=== PATIENT | male | born 1960 | race Caucasian/White ===

== ENCOUNTER 2017-01-10 21:10 | Inpatient (IN) | payer OTHER ==
[~2017-01-10] VITALS: Ht 193 cm; Wt 102.8 kg
[~2017-01-10 21:10] MED LIST: AMIO200T42 PO; ERGO500017 PO; ESZO3TAB9 PO; LOSA25TA5 PO; METO-93 PO; METO25TA91 PO; MEXI150C PO; SOTA80TA PO; SPIR25TA PO; TRAZ50TA18 PO; WARF10TA6 PO; WARF2.5T73 PO
[2017-01-10 21:48] LABS: BLOOD UREA NITROGEN 23 mg/dL (7-18)
[2017-01-10 21:52] LABS: IS PT STATUS REG ER OR PRE ER? YES
[2017-01-10] MEDS ORDERED: EZET10TA3 PO (22:14)
[2017-01-10] MEDS ORDERED: ASPI-515 PO (22:14)
[2017-01-10] MEDS ORDERED: ONDANSETRON 2MG/ML, 2ML IVPush PRN (22:30)
[2017-01-10 23:24] VITALS: BP 117/84
[2017-01-10] MEDS ORDERED: WARF7.5T6 PO (23:44)
[2017-01-11] MEDS ORDERED: BISACODYL 10 MG SUPP PR PRN (01:00)
[2017-01-11] MEDS ORDERED: POLYETHYLENE GLYCOL 17 GM PACKET PO PRN (01:00)
[2017-01-11] MEDS ORDERED: ONDANSETRON 2MG/ML, 2ML IVPush PRN (01:00)
[2017-01-11] MEDS ORDERED: ACETAMINOPHEN 325 MG TABLET PO PRN (01:00)
[2017-01-11] MEDS ORDERED: morphine SULFATE 10 MG/ML, 1ML IVPush PRN (01:00)
[2017-01-11] MEDS ORDERED: NITROGLYCERIN 0.4 MG BOTTLE (25 TABS) SL PRN (01:00)
[2017-01-11] MEDS: ENOXAPARIN 100 MG/ML SQ SCH ×2 (01:31→12:18)
[2017-01-11] MEDS: ZOLPIDEM 5MG TABLET PO SCH (01:31)
[2017-01-11] MEDS: MEXILETINE 150 MG CAPSULE PO SCH ×3 (01:32→18:44)
[2017-01-11 01:37] VITALS: BP 119/82
[2017-01-11 04:01] LABS: ASPARTATE AMINO TRANSFERASE 29 U/L (15-37); BLOOD UREA NITROGEN 20 mg/dL (7-18)
[2017-01-11 04:09] LABS: IS PT STATUS REG ER OR PRE ER? NO
[2017-01-11 07:10] VITALS: BP 104/64
[2017-01-11] MEDS ORDERED: REGADENOSON 0.4 MG/5 ML SYRINGE ONE (08:09)
[2017-01-11] MEDS: SENNA/DOCUSATE TABLET PO SCH (09:00)
[2017-01-11] MEDS: SODIUM CHLORIDE FLUSH 3ML SYRINGE IVF SCH ×2 (09:00→20:25)
[2017-01-11] MEDS: EZETIMIBE 10 MG TABLET PO SCH (12:16)
[2017-01-11] MEDS: LOSARTAN 25MG TABLET PO SCH (12:17)
[2017-01-11] MEDS: METOPROLOL SUCCINATE 50 MG TAB.ER.24H PO SCH (12:17)
[2017-01-11] MEDS: ASPIRIN 81 MG TABLET EC PO SCH (12:17)
[2017-01-11] MEDS: SPIRONOLACTONE 25 MG TABLET PO SCH (12:18)
[2017-01-11] MEDS: AMIODARONE 200 MG TABLET PO SCH ×2 (12:18→20:25)
[2017-01-11 13:50] LABS: IS PT STATUS REG ER OR PRE ER? NO
[2017-01-11 14:07] VITALS: BP 109/74
[2017-01-11] MEDS: NICOTINE 7 MG/24 HR PATCH.TD24 TD SCH (14:57)
[2017-01-11] MEDS ORDERED: WARFARIN 7.5 MG TABLET PO-COUM SCH (18:00)
[2017-01-11] MEDS ORDERED: WARFARIN 7.5 MG TABLET PO-COUM ONE (20:00)
[2017-01-11 20:01] VITALS: BP 102/65
[2017-01-11] MEDS ORDERED: WARFARIN 10 MG TABLET PO-COUM ONE (20:30)
[2017-01-12] MEDS: ENOXAPARIN 100 MG/ML SQ SCH (00:15)
[2017-01-12] MEDS: MEXILETINE 150 MG CAPSULE PO SCH ×2 (00:15→09:17)
[2017-01-12] MEDS: ZOLPIDEM 5MG TABLET PO SCH (00:15)
[2017-01-12] MEDS: NICOTINE 7 MG/24 HR PATCH.TD24 TD SCH (00:15)
[2017-01-12 00:51] VITALS: BP 103/69
[2017-01-12 05:14] LABS: BLOOD UREA NITROGEN 20 mg/dL (7-18)
[2017-01-12 08:01] VITALS: BP 108/73
[2017-01-12] MEDS: SENNA/DOCUSATE TABLET PO SCH (09:00)
[2017-01-12] MEDS: SODIUM CHLORIDE FLUSH 3ML SYRINGE IVF SCH (09:00)
[2017-01-12] MEDS: METOPROLOL SUCCINATE 50 MG TAB.ER.24H PO SCH (09:16)
[2017-01-12] MEDS: EZETIMIBE 10 MG TABLET PO SCH (09:16)
[2017-01-12] MEDS: SPIRONOLACTONE 25 MG TABLET PO SCH (09:17)
[2017-01-12] MEDS: LOSARTAN 25MG TABLET PO SCH (09:17)
[2017-01-12] MEDS: ASPIRIN 81 MG TABLET EC PO SCH (09:17)
[2017-01-12] MEDS: AMIODARONE 200 MG TABLET PO SCH (09:17)
[2017-01-12] MEDS ORDERED: WARFARIN MODERAT DOSE PROTOCOL XX SCH (12:00)
[2017-01-12] MEDS ORDERED: WARFARIN 10 MG TABLET PO-COUM SCH (18:00)
== END 2017-01-12 13:50 | disposition home or self-care (01) | DRG 309 ==
LOC: ED 22:24 → EDIP 23:16 → 5SO 23:18
PROVIDERS: ADMIT Internal Medicine; ATTEND Internal Medicine
PROC: 4B02XSZ Measurement of Cardiac Pacemaker, External Approach (ICD-10-PCS; principal; 2017-01-11)
DX: I49.3 Ventricular premature depolarization (principal); I50.42 Chronic combined systolic (congestive) and diastolic (congestive) heart failure; D68.69 Other thrombophilia; I25.10 Atherosclerotic heart disease of native coronary artery without angina pectoris; I25.5 Ischemic cardiomyopathy; F17.210 Nicotine dependence, cigarettes, uncomplicated; F43.10 Post-traumatic stress disorder, unspecified; I11.0 Hypertensive heart disease with heart failure; J44.9 Chronic obstructive pulmonary disease, unspecified; K21.9 Gastro-esophageal reflux disease without esophagitis; E78.5 Hyperlipidemia, unspecified; Z88.8 Allergy status to other drugs, medicaments and biological substances; Z82.49 Family history of ischemic heart disease and other diseases of the circulatory system; Z86.73 Personal history of transient ischemic attack (TIA), and cerebral infarction without residual deficits; I25.2 Old myocardial infarction; Z95.1 Presence of aortocoronary bypass graft; Z90.49 Acquired absence of other specified parts of digestive tract; Z79.82 Long term (current) use of aspirin; Z79.899 Other long term (current) drug therapy; Z79.01 Long term (current) use of anticoagulants; Z98.84 Bariatric surgery status; Z95.0 Presence of cardiac pacemaker
CPT/HCPCS: 36415; 78452; 80048; 80053; 82040; 82330; 83735; 84443; 84481; 84484; 85025; 85610; 93005; 93017; 93306; 99285; J1650; J2785; A9502; C9898

== ENCOUNTER 2018-01-10 14:40 | Emergency (ER) | payer MEDICARE, OTHER ==
[~2018-01-10] VITALS: Ht 193 cm; Wt 112.3 kg
[~2018-01-10 14:40] MED LIST changes: +ASPI-515 PO; +ESZO3TAB28 PO; -ESZO3TAB9 PO; +EZET10TA18 PO; +WARF10TA43 PO; -WARF10TA6 PO; +WARF7.5T46 PO
[2018-01-10 16:08] LABS: BASOPHILS # (AUTO) 0.04 x10^3/uL (0-0.1); BASOPHILS % (AUTO) 1 % (0-1); EOSINOPHILS % (AUTO) 1 % (1-7); LYMPHOCYTES # (AUTO) 1.48 x10^3/uL (1-3.4); LYMPHOCYTES % (AUTO) 16 % (22-44); MD NO; MEAN CORPUSCULAR HEMOGLOBIN 28.9 pg (27.5-34.5); MEAN CORPUSCULAR HGB CONC 32.7 g/dL (33.2-36.2); MEAN CORPUSCULAR VOLUME 88.5 fL (81-97); MEAN PLATELET VOLUME 8.1 fL (7.4-10.4); MONOCYTES # (AUTO) 0.79 x10^3/uL (0.2-0.8); MONOCYTES % (AUTO) 8 % (2-9); NEUTROPHILS # (AUTO) 7.09 x10^3/uL (1.8-6.8); NEUTROPHILS % (AUTO) 75 % (42-75); PLATELET COUNT 300 x10^3/uL (130-400); RED BLOOD COUNT 4.72 x10^6/uL (4.38-5.82)
[2018-01-10 16:15] LABS: INTERNATIONAL NORMALIZED RATIO 3.31 (0.93-1.1); PROTHROMBIN TIME 33.3 Seconds (9.6-11.5)
[2018-01-10 16:20] LABS: ALBUMIN 3.7 g/dL (3.4-5.0); ANION GAP 9 mmol/L (5-15); CHLORIDE 104 mmol/L (98-107)
[2018-01-10 16:27] LABS: ALANINE AMINOTRANSFERASE 46 U/L (12-78); ALKALINE PHOSPHATASE 90 U/L (45-117); BILIRUBIN,TOTAL 0.7 mg/dL (0.2-1.0); CALCIUM 8.9 mg/dL (8.5-10.1); CREATININE 1.64 mg/dL (0.7-1.3); TOTAL PROTEIN 7.3 g/dL (6.4-8.2); TROPONIN I < 0.015 ng/mL (0.000-0.045)
[2018-01-10] MEDS ORDERED: AMIODARONE 450 MG in DEXTROSE 5% 241 ML IV PRN (17:00)
[2018-01-10] MEDS ORDERED: FILTER 0.22 MICRON IV PRN (17:00)
[2018-01-10] MEDS ORDERED: SODIUM CHLORIDE 0.9% 1,000 ML IV SCH (17:32)
[2018-01-10] MEDS ORDERED: AMPICILLIN/SULBACTAM 3 GM in SODIUM CHLORIDE 0.9% 100 ML IV SCH (18:00)
[2018-01-10] MEDS ORDERED: MEXILETINE 150 MG CAPSULE PO SCH (18:00)
[2018-01-10] MEDS ORDERED: AMIODARONE 900 MG in DEXTROSE 5% 482 ML IV SCH (18:00)
[2018-01-10] MEDS ORDERED: PHARMACY MAY ADJ FOR RENAL FX MC PRN (18:00)
[2018-01-10] MEDS ORDERED: DOCUSATE 100 MG CAPSULE PO PRN (18:00)
[2018-01-10] MEDS ORDERED: POLYETHYLENE GLYCOL 17 GM PACKET PO PRN (18:00)
[2018-01-10] MEDS ORDERED: morphine SULFATE 10 MG/ML, 1ML IVPush PRN (18:00)
[2018-01-10] MEDS ORDERED: ONDANSETRON ODT 4 MG PO PRN (18:00)
[2018-01-10] MEDS ORDERED: ACETAMINOPHEN 325 MG TABLET PO PRN (18:00)
[2018-01-10] MEDS ORDERED: LABETALOL 5MG/ML, 20ML IVPush PRN (18:00)
[2018-01-10] MEDS ORDERED: VANCOMYCIN PER PHARMACY MC PRN (18:00)
[2018-01-10] MEDS ORDERED: BISACODYL 10 MG SUPP PR PRN (18:00)
[2018-01-10 18:09] VITALS: BP 97/77
[2018-01-10] MEDS ORDERED: PHARMACOKINETIC CONSULTATION MC ONE (19:00)
[2018-01-10] MEDS ORDERED: VANCOMYCIN 2,200 MG in SODIUM CHLORIDE 0.9% 500 ML IV SCH (19:00)
[2018-01-10] MEDS ORDERED: PHARMACOKINETIC MONITORING MC PRN (19:00)
[2018-01-10] MEDS ORDERED: TEMPLATE NON-FORMULARY MED. (Eszopiclone** (Lunesta**) 3 MG) PO SCH (21:00)
[2018-01-10] MEDS ORDERED: AMIODARONE 200 MG TABLET PO SCH (21:00)
[2018-01-11] MEDS ORDERED: ASPIRIN 81 MG TABLET EC PO SCH (09:00)
[2018-01-11] MEDS ORDERED: METOPROLOL SUCCINATE 50 MG TAB.ER.24H PO SCH (09:00)
[2018-01-11] MEDS ORDERED: EZETIMIBE 10 MG TABLET PO SCH (09:00)
== END 2018-01-10 20:41 | disposition short-term general hospital (02) ==
LOC: ED 16:53 → UNDOADMIN 16:54 → EDIP 16:54 → ED 17:29
DX: I42.8 Other cardiomyopathies (principal); I49.5 Sick sinus syndrome; I48.91 Unspecified atrial fibrillation
CPT/HCPCS: 36415; 71045; 80053; 83735; 84439; 84443; 84484; 85025; 85610; 85730; 87040; 93005; 96374; 99285; J0282; J7060

== ENCOUNTER 2018-01-23 15:19 | Emergency (ER) | payer MEDICARE, OTHER ==
[~2018-01-23] VITALS: Ht 193 cm; Wt 105.0 kg
[2018-01-23 15:56] LABS: BASOPHILS # (AUTO) 0.08 x10^3/uL (0-0.1); BASOPHILS % (AUTO) 1 % (0-1); EOSINOPHILS # (AUTO) 0.12 x10^3/uL (0-0.4); EOSINOPHILS % (AUTO) 1 % (1-7); LYMPHOCYTES # (AUTO) 1.98 x10^3/uL (1-3.4); LYMPHOCYTES % (AUTO) 18 % (22-44); MD NO; MEAN CORPUSCULAR HEMOGLOBIN 29.7 pg (27.5-34.5); MEAN CORPUSCULAR HGB CONC 33.1 g/dL (33.2-36.2); MEAN CORPUSCULAR VOLUME 89.5 fL (81-97); MEAN PLATELET VOLUME 8.1 fL (7.4-10.4); MONOCYTES # (AUTO) 0.98 x10^3/uL (0.2-0.8); MONOCYTES % (AUTO) 9 % (2-9); NEUTROPHILS # (AUTO) 8.15 x10^3/uL (1.8-6.8); NEUTROPHILS % (AUTO) 72 % (42-75); PLATELET COUNT 314 x10^3/uL (130-400); RED BLOOD COUNT 4.47 x10^6/uL (4.38-5.82); RED CELL DISTRIBUTION WIDTH 19.3 % (9.4-14.8)
[2018-01-23 16:06] LABS: ALBUMIN 3.6 g/dL (3.4-5.0); ANION GAP 5 mmol/L (5-15); CHLORIDE 104 mmol/L (98-107); CREATININE 1.91 mg/dL (0.7-1.3)
[2018-01-23] MEDS ORDERED: AMIO200T42 PO (16:08)
[2018-01-23] MEDS ORDERED: ATOR-2 PO (16:09)
[2018-01-23 16:10] LABS: TROPONIN I < 0.015 ng/mL (0.000-0.045)
[2018-01-23] MEDS ORDERED: BUME2TAB PO (16:10)
[2018-01-23] MEDS ORDERED: CHOL100011 PO (16:10)
[2018-01-23] MEDS ORDERED: DOXY100C2 PO (16:11)
[2018-01-23] MEDS ORDERED: CYAN1TAB29 PO (16:11)
[2018-01-23] MEDS ORDERED: ENOX40SY4 SQ (16:12)
[2018-01-23] MEDS ORDERED: LANS30CA PO (16:13)
[2018-01-23] MEDS ORDERED: POTA20TA37 PO (16:14)
[2018-01-23] MEDS ORDERED: SPIR25TA3 PO (16:15)
[2018-01-23] MEDS ORDERED: THIA100T10 PO (16:15)
[2018-01-23] MEDS ORDERED: WARF7.5T46 PO (16:16)
[2018-01-23] MEDS ORDERED: LEVA0.318 INH (16:17)
[2018-01-23 16:42] LABS: INTERNATIONAL NORMALIZED RATIO 2.15 (0.93-1.1); PROTHROMBIN TIME 21.8 Seconds (9.6-11.5)
[2018-01-23 17:27] VITALS: BP 104/83
== END 2018-01-23 17:29 | disposition home or self-care (01) ==
LOC: ED 17:23
DX: R53.1 Weakness (principal); R53.83 Other fatigue; R07.9 Chest pain, unspecified; I50.9 Heart failure, unspecified; I25.810 Atherosclerosis of coronary artery bypass graft(s) without angina pectoris; Z87.891 Personal history of nicotine dependence
CPT/HCPCS: 36415; 71045; 80048; 82040; 83615; 83880; 84484; 85025; 85610; 85730; 93005; 99285